=== PATIENT | female | born 2005 | race Caucasian/White ===

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

== ENCOUNTER 2024-06-02 13:18 | Inpatient (IN) | payer OTHER ==
--- NOTE | 2024-06-02 13:41 | ED ---
Nausea/Vomiting/Diarrhea HPI - General Source: patient, family, RN notes reviewed Mode of arrival: ambulatory Limitations: no limitations <Gracia Palomino - Last Filed: 06/02/24 13:39> <Maynor Stiles - Last Filed: 06/02/24 19:27> - General Chief complaint: Nausea/Vomiting/Diarrhea Stated complaint: Diabetic issue-poss DKA Time Seen by Provider: 06/02/24 13:35 - History of Present Illness Initial comments: Quick Note: This is a 19-year-old female who presents to the emergency department for nausea, vomiting, and weakness. Her mother states that it started yesterday. Feels like she is going into DKA again. Yesterday her sugars were in the 120s to 130s, but she has not yet checked it today. (Gracia Jacobsen) This is a 19-year-old female who is a type I diabetic. Patient started vomiting last night and continued vomiting this morning. Patient feels extremely weak and has a history of being in DKA. Patient states her sugars were 130 yesterday but did not take today. Patient has any fever chills. Patient denies chest pain difficulty breathing shortness of breath. Patient denies abdominal pain but continues to be nauseous. (Maynor Stiles) - Related Data Home Medications Medication Instructions Recorded Confirmed Insulin Glargine,Hum.rec.anlog 30 units SQ HS 12/23/23 06/02/24 [Lantus Solostar Pen] Insulin Lispro [humaLOG Kwikpen] 1 - 7 unit SQ ACHS 12/23/23 06/02/24 Insulin Lispro [humaLOG Kwikpen] 10 unit SQ TID-W/MEALS 12/23/23 06/02/24 Levonorgestrel/Ethin.estradiol 1 tab PO DAILY 12/23/23 06/02/24 [Lutera-28 Tablet] atenoloL [Tenormin] 50 mg PO DAILY 12/23/23 06/02/24 methIMAzole 10 mg PO TID 12/23/23 06/02/24 lisinopriL [Zestril] 2.5 mg PO DAILY 06/02/24 06/02/24 Allergies Allergy/AdvReac Type Severity Reaction Status Date / Time No Known Allergies Allergy Verified 06/02/24 16:19 Review of Systems ROS Other: All systems not noted in ROS Statement are negative. <Gracia Palomino - Last Filed: 06/02/24 13:39> ROS Other: All systems not noted in ROS Statement are negative. <Maynor Stiles - Last Filed: 06/02/24 19:27> ROS Statement: Those systems with pertinent positive or pertinent negative responses have been documented in the HPI. Past Medical History Past Medical History: Asthma, Diabetes Mellitus, Thyroid Disorder Additional Past Medical History / Comment(s): hyperthyroidism, Type 1 DM, tachycardia, grave's disease History of Any Multi-Drug Resistant Organisms: None Reported Past Surgical History: No Surgical Hx Reported Past Anesthesia/Blood Transfusion Reactions: No Reported Reaction Past Psychological History: No Psychological Hx Reported Smoking Status: Current some day smoker, Vaper Past Alcohol Use History: Occasional, Rare Past Drug Use History: None Reported Additional Drug Use History / Comment(s): Patient vapes daily - Past Family History Mother Additional Family Medical History / Comment(s): none Father Family Medical History: COPD Brother(s) Family Medical History: Diabetes Mellitus Additional Family Medical History / Comment(s): Type 1 DM <Gracia Palomino - Last Filed: 06/02/24 13:39> General Exam <Gracia Palomino - Last Filed: 06/02/24 13:39> <Maynor Stiles - Last Filed: 06/02/24 19:27> - General Exam Comments Initial Comments: Visual Physical Exam Vital signs reviewed General: In distress, lethargic Head: Normocephalic, atraumatic Eyes: PERRLA, EOMI ENT: Airway patent Chest: Nonlabored breathing Skin: No visual rash, normal skin tone Neuro: Alert and oriented 3 Musculoskeletal: No gross abnormalities (Gracia Palomino) GENERAL: Patient is well-developed and well-nourished. Patient is nontoxic and well- hydrated and is in moderate distress. ENT: Neck is soft and supple. No significant lymphadenopathy is noted. Oropharynx is clear. Dry mucous membranes. Neck has full range of motion without eliciting any pain. EYES: The sclera were anicteric and conjunctiva were pink and moist. Extraocular movements were intact and pupils were equal round and reactive to light. Eyelids were unremarkable. PULMONARY: Unlabored respirations. Good breath sounds bilaterally. No audible rales rhonchi or wheezing was noted. CARDIOVASCULAR: Is a regular rate at about 170 bpm ABDOMEN: Soft and nontender with normal bowel sounds. SKIN: Skin is clear with no lesions or rashes and otherwise unremarkable. NEUROLOGIC: Patient is alert and oriented x3. Cranial nerves II through XII are grossly intact. Motor and sensory are also intact. Normal speech, volume and content. Symmetrical smile. MUSCULOSKELETAL: Normal extremities with adequate strength and full range of motion. LYMPHATICS: No significant lymphadenopathy is noted PSYCHIATRIC: Normal psychiatric evaluation. (Maynor Stiles) Course Vital Signs 06/02/24 06/02/24 06/02/24 13:39 14:41 14:50 Temperature 97 F L Pulse Rate 172 H 181 H 174 H Respiratory 16 28 H 26 H Rate Blood Pressure 136/87 114/106 O2 Sat by Pulse 95 Oximetry 06/02/24 06/02/24 06/02/24 15:04 16:29 17:35 Temperature 99.3 F 98.5 F Pulse Rate 179 H 154 H 146 H Respiratory 26 H 20 30 H Rate Blood Pressure 144/91 123/69 O2 Sat by Pulse 96 96 Oximetry 06/02/24 06/02/24 06/02/24 18:01 18:16 18:43 Temperature Pulse Rate 152 H 135 H 141 H Respiratory 30 H 28 H 30 H Rate Blood Pressure 127/77 130/83 O2 Sat by Pulse 99 99 97 Oximetry Medical Decision Making <Gracia Palomino - Last Filed: 06/02/24 13:39> - Lab Data Result diagrams: 06/02/24 14:19 06/02/24 16:11 <Maynor Stiles - Last Filed: 06/02/24 19:27> - Medical Decision Making I performed the QuickNote portion of this chart. Signed Gracia Palomino PA-C. (Gracia Palomino) EKG is interpreted by myself EKG shows sinus tach at 170 bpm QRS is 78 QT interval is 233 QTc is 325. Patient's EKG shows no ST segment elevation or depression. Was pt. sent in by a medical professional or institution (LUCIA Ruiz, OFFICE RN, urgent care, hospital, or [facility]...) When possible be specific @ -No Did you speak to anyone other than the patient for history (EMS, parent, family, police, friend...)? What history was obtained from this source @ -No Did you review nursing and triage notes (agree or disagree)? Why? @ -I reviewed and agree with nursing and triage notes Were old charts reviewed (outside hosp., previous admission, EMS record, old EKG, old radiological studies, urgent care reports/EKG's, [facility] records)? Report findings @ -No old charts were reviewed Differential Diagnosis? @ -Vomiting, DKA, thyroid storm, viral syndrome, this is not an all-inclusive list EKG interpreted by me (3pts min.). @ -As above X-rays interpreted by me (1pt min.). @ -None done CT interpreted by me (1pt min.). @ -None done U/S interpreted by me (1pt. min.). @ -None done What testing was considered but not performed or refused? (CT, X-rays, U/S, labs)? Why? @ -None What meds were considered but not given or refused? Why? @ -None Did you discuss the management of the patient with other professionals (professionals i.e. DrSamy, PA, OFFICE RN, lab, RT, psych nurse, rn social services, automobile washer steam, teacher, revenue officer, case specialist)? Give summary @ -I spoke with Dr. Garner he agreed to admit the patient. I also spoke with Dr. Hernandez he agreed to take the patient to the ICU. Was smoking cessation discussed for >3mins.? @ -No Was critical care preformed (if so, how long)? @ -50 minutes Were there social determinants of health that impacted care today? How? (Homelessness, low income, unemployed, alcoholism, drug addiction, t ransportation, low edu. Level, literacy, decrease access to med. care, senior care, rehab)? @ -No Was there de-escalation of care discussed even if they declined (Discuss DNR or withdrawal of care, Hospice)? DNR status @ -No What co-morbidities impacted this encounter? (DM, HTN, Smoking, COPD, CAD, Cancer, CVA, ARF, Chemo, Hep., AIDS, mental health diagnosis, sleep apnea, morbid obesity)? @ -None Was patient admitted / discharged? Hospital course, mention meds given and route, prescriptions, significant lab abnormalities, going to OR and other pertinent info. @ -Patient on arrival was treated as a DKA patient was given 2 L of normal saline was started on a insulin drip and was given a bolus of insulin. After the patient was here 2 hours mother informing that the patient does have Graves' disease and in the past has had a thyroid storm. At this point in time I ordered propranolol and I gave her 3 doses of 2 mg over a couple of hours. Did bring the heart rate down from 180 down to 140. Patient was also given a dose of her methazolamide and she was feeling considerably better and she will be sent to the ICU. Undiagnosed new problem with uncertain prognosis? @ -No Drug Therapy requiring intensive monitoring for toxicity (Heparin, Nitro, Insulin, Cardizem)? @ -No Were any procedures done? @ -No Diagnosis/symptom? @ -Diabetic ketoacidosis Acute, or Chronic, or Acute on Chronic? @ -Acute Uncomplicated (without systemic symptoms) or Complicated (systemic symptoms)? @ -Comp Side effects of treatment? @ -No Exacerbation, Progression, or Severe Exacerbation? @ -No Poses a threat to life or bodily function? How? (Chest pain, [place], [place], pneumonia, PE, COPD, DKA, ARF, appy, cholecystitis, CVA, Diverticulitis, Homicidal, Suicidal, threat to staff... and all critical care pts) @ -Yes this can lead to severe dehydration and endorgan dysfunction Diagnosis/symptom? @ -Thyroid storm Acute, or Chronic, or Acute on Chronic? @ -Acute Uncomplicated (without systemic symptoms) or Complicated (systemic symptoms)? @ -Complicated Side effects of treatment? @ -None Exacerbation, Progression, or Severe Exacerbation] @ -No Poses a threat to life or bodily function? @ -Yes this can lead to arrhythmias, hyperpyrexia, and electrolyte abnormalities. (Maynor Stiles) - Lab Data Lab Results 06/02/24 06/02/24 06/02/24 Range/Units 13:42 14:19 14:19 WBC 20.1 H (4.0-11.0) k/uL RBC 5.34 (3.80-5.40) m/uL Hgb 15.4 (11.4-16.0) gm/dL Hct 51.9 H (34.0-46.0) % MCV 97.2 (80.0-100.0) fL MCH 28.8 (25.0-35.0) pg MCHC 29.7 L (31.0-37.0) g/dL RDW 13.3 (11.5-15.5) % Plt Count 386 (150-450) k/uL MPV 7.6 Neutrophils % 78 % Lymphocytes % 18 % Monocytes % 2 % Eosinophils % 0 % Basophils % 0 % Neutrophils # 15.7 H (1.3-7.7) k/uL Lymphocytes # 3.6 (1.0-4.8) k/uL Monocytes # 0.5 (0-1.0) k/uL Eosinophils # 0.0 (0-0.7) k/uL Basophils # 0.1 (0-0.2) k/uL Hypochromasia Marked VBG pH (7.31-7.41) VBG pCO2 (37-51) mmHg VBG HCO3 (24-28) mmol/L Sodium 133 L (137-145) mmol/L Potassium 5.7 H (3.5-5.1) mmol/L Chloride 97 L (98-107) mmol/L Carbon Dioxide <5 L* (22-30) mmol/L Anion Gap mmol/L BUN 11 (7-17) mg/dL Creatinine 0.63 (0.52-1.04) mg/dL Est GFR (CKD-EPI)AfAm >90 (>60 ml/min/1.73 sqM) Est GFR (CKD-EPI)NonAf >90 (>60 ml/min/1.73 sqM) Glucose 601 H* (74-99) mg/dL POC Glucose (mg/dL) 490 H (70-110) mg/dL POC Glu Facilities Maintenance Assistant ID Stefany Packer Lactic Ac Sepsis Rflx Plasma Lactic Acid Artis (0.7-2.0) mmol/L Calcium 9.9 (8.4-10.2) mg/dL Phosphorus 7.5 H (2.5-4.5) mg/dL Magnesium 1.6 (1.6-2.3) mg/dL Total Bilirubin 0.7 (0.2-1.3) mg/dL AST 41 H (14-36) U/L ALT 46 H (4-34) U/L Alkaline Phosphatase 153 H (38-126) U/L Total Protein 7.8 (6.3-8.2) g/dL Albumin 4.9 (3.5-5.0) g/dL TSH <0.015 L (0.465-4.680) mIU/L Free T4 6.72 H (0.78-2.19) ng/dL Urine Color Urine Appearance (Clear) Urine pH (5.0-8.0) Ur Specific Tyler (1.001-1.035) Urine Protein (Negative) Urine Glucose (UA) (Negative) Urine Ketones (Negative) Urine Blood (Negative) Urine Nitrite (Negative) Urine Bilirubin (Negative) Urine Urobilinogen (<2.0) mg/dL Ur Leukocyte Esterase (Negative) Urine RBC (0-5) /hpf Urine WBC (0-5) /hpf Ur Squamous Epith Cells (0-4) /hpf Amorphous Sediment (None) /hpf Urine Bacteria (None) /hpf Urine Mucus (None) /hpf Urine HCG, Qual (Not Detectd) Acetone, Qual Positive (Negative) 06/02/24 06/02/24 06/02/24 Range/Units 14:19 14:19 14:25 WBC (4.0-11.0) k/uL RBC (3.80-5.40) m/uL Hgb (11.4-16.0) gm/dL Hct (34.0-46.0) % MCV (80.0-100.0) fL MCH (25.0-35.0) pg MCHC (31.0-37.0) g/dL RDW (11.5-15.5) % Plt Count (150-450) k/uL MPV Neutrophils % % Lymphocytes % % Monocytes % % Eosinophils % % Basophils % % Neutrophils # (1.3-7.7) k/uL Lymphocytes # (1.0-4.8) k/uL Monocytes # (0-1.0) k/uL Eosinophils # (0-0.7) k/uL Basophils # (0-0.2) k/uL Hypochromasia VBG pH 7.03 L* (7.31-7.41) VBG pCO2 19 L (37-51) mmHg VBG HCO3 5 L* (24-28) mmol/L Sodium (137-145) mmol/L Potassium (3.5-5.1) mmol/L Chloride (98-107) mmol/L Carbon Dioxide (22-30) mmol/L Anion Gap mmol/L BUN (7-17) mg/dL Creatinine (0.52-1.04) mg/dL Est GFR (CKD-EPI)AfAm (>60 ml/min/1.73 sqM) Est GFR (CKD-EPI)NonAf (>60 ml/min/1.73 sqM) Glucose (74-99) mg/dL POC Glucose (mg/dL) 498 H (70-110) mg/dL POC Glu Facilities Maintenance Assistant ID October Lactic Ac Sepsis Rflx Plasma Lactic Acid Artis 3.8 H* (0.7-2.0) mmol/L Calcium (8.4-10.2) mg/dL Phosphorus (2.5-4.5) mg/dL Magnesium (1.6-2.3) mg/dL Total Bilirubin (0.2-1.3) mg/dL AST (14-36) U/L ALT (4-34) U/L Alkaline Phosphatase (38-126) U/L Total Protein (6.3-8.2) g/dL Albumin (3.5-5.0) g/dL TSH (0.465-4.680) mIU/L Free T4 (0.78-2.19) ng/dL Urine Color Urine Appearance (Clear) Urine pH (5.0-8.0) Ur Specific Tyler (1.001-1.035) Urine Protein (Negative) Urine Glucose (UA) (Negative) Urine Ketones (Negative) Urine Blood (Negative) Urine Nitrite (Negative) Urine Bilirubin (Negative) Urine Urobilinogen (<2.0) mg/dL Ur Leukocyte Esterase (Negative) Urine RBC (0-5) /hpf Urine WBC (0-5) /hpf Ur Squamous Epith Cells (0-4) /hpf Amorphous Sediment (None) /hpf Urine Bacteria (None) /hpf Urine Mucus (None) /hpf Urine HCG, Qual (Not Detectd) Acetone, Qual (Negative) 06/02/24 06/02/24 06/02/24 Range/Units 15:10 15:20 15:20 WBC (4.0-11.0) k/uL RBC (3.80-5.40) m/uL Hgb (11.4-16.0) gm/dL Hct (34.0-46.0) % MCV (80.0-100.0) fL MCH (25.0-35.0) pg MCHC (31.0-37.0) g/dL RDW (11.5-15.5) % Plt Count (150-450) k/uL MPV Neutrophils % % Lymphocytes % % Monocytes % % Eosinophils % % Basophils % % Neutrophils # (1.3-7.7) k/uL Lymphocytes # (1.0-4.8) k/uL Monocytes # (0-1.0) k/uL Eosinophils # (0-0.7) k/uL Basophils # (0-0.2) k/uL Hypochromasia VBG pH (7.31-7.41) VBG pCO2 (37-51) mmHg VBG HCO3 (24-28) mmol/L Sodium (137-145) mmol/L Potassium (3.5-5.1) mmol/L Chloride (98-107) mmol/L Carbon Dioxide (22-30) mmol/L Anion Gap mmol/L BUN (7-17) mg/dL Creatinine (0.52-1.04) mg/dL Est GFR (CKD-EPI)AfAm (>60 ml/min/1.73 sqM) Est GFR (CKD-EPI)NonAf (>60 ml/min/1.73 sqM) Glucose (74-99) mg/dL POC Glucose (mg/dL) (70-110) mg/dL POC Glu Facilities Maintenance Assistant ID Lactic Ac Sepsis Rflx Y Plasma Lactic Acid Artis (0.7-2.0) mmol/L Calcium (8.4-10.2) mg/dL Phosphorus (2.5-4.5) mg/dL Magnesium (1.6-2.3) mg/dL Total Bilirubin (0.2-1.3) mg/dL AST (14-36) U/L ALT (4-34) U/L Alkaline Phosphatase (38-126) U/L Total Protein (6.3-8.2) g/dL Albumin (3.5-5.0) g/dL TSH (0.465-4.680) mIU/L Free T4 (0.78-2.19) ng/dL Urine Color Colorless Urine Appearance Cloudy H (Clear) Urine pH 5.0 (5.0-8.0) Ur Specific Tyler 1.018 (1.001-1.035) Urine Protein Trace H (Negative) Urine Glucose (UA) 4+ H (Negative) Urine Ketones 4+ H (Negative) Urine Blood Small H (Negative) Urine Nitrite Negative (Negative) Urine Bilirubin Negative (Negative) Urine Urobilinogen <2.0 (<2.0) mg/dL Ur Leukocyte Esterase Large H (Negative) Urine RBC 30 H (0-5) /hpf Urine WBC 46 H (0-5) /hpf Ur Squamous Epith Cells 20 H (0-4) /hpf Amorphous Sediment Occasional H (None) /hpf Urine Bacteria Occasional H (None) /hpf Urine Mucus Rare H (None) /hpf Urine HCG, Qual Not Detected (Not Detectd) Acetone, Qual (Negative) 06/02/24 06/02/24 06/02/24 Range/Units 15:27 16:11 16:11 WBC (4.0-11.0) k/uL RBC (3.80-5.40) m/uL Hgb (11.4-16.0) gm/dL Hct (34.0-46.0) % MCV (80.0-100.0) fL MCH (25.0-35.0) pg MCHC (31.0-37.0) g/dL RDW (11.5-15.5) % Plt Count (150-450) k/uL MPV Neutrophils % % Lymphocytes % % Monocytes % % Eosinophils % % Basophils % % Neutrophils # (1.3-7.7) k/uL Lymphocytes # (1.0-4.8) k/uL Monocytes # (0-1.0) k/uL Eosinophils # (0-0.7) k/uL Basophils # (0-0.2) k/uL Hypochromasia VBG pH (7.31-7.41) VBG pCO2 (37-51) mmHg VBG HCO3 (24-28) mmol/L Sodium 140 (137-145) mmol/L Potassium 4.4 (3.5-5.1) mmol/L Chloride 110 H (98-107) mmol/L Carbon Dioxide <5 L* (22-30) mmol/L Anion Gap mmol/L BUN 11 (7-17) mg/dL Creatinine 0.57 (0.52-1.04) mg/dL Est GFR (CKD-EPI)AfAm >90 (>60 ml/min/1.73 sqM) Est GFR (CKD-EPI)NonAf >90 (>60 ml/min/1.73 sqM) Glucose 328 H (74-99) mg/dL POC Glucose (mg/dL) 383 H (70-110) mg/dL POC Glu Facilities Maintenance Assistant ID Krish Stuart Lactic Ac Sepsis Rflx Plasma Lactic Acid Artis (0.7-2.0) mmol/L Calcium (8.4-10.2) mg/dL Phosphorus 5.7 H (2.5-4.5) mg/dL Magnesium (1.6-2.3) mg/dL Total Bilirubin (0.2-1.3) mg/dL AST (14-36) U/L ALT (4-34) U/L Alkaline Phosphatase (38-126) U/L Total Protein (6.3-8.2) g/dL Albumin (3.5-5.0) g/dL TSH (0.465-4.680) mIU/L Free T4 (0.78-2.19) ng/dL Urine Color Urine Appearance (Clear) Urine pH (5.0-8.0) Ur Specific Tyler (1.001-1.035) Urine Protein (Negative) Urine Glucose (UA) (Negative) Urine Ketones (Negative) Urine Blood (Negative) Urine Nitrite (Negative) Urine Bilirubin (Negative) Urine Urobilinogen (<2.0) mg/dL Ur Leukocyte Esterase (Negative) Urine RBC (0-5) /hpf Urine WBC (0-5) /hpf Ur Squamous Epith Cells (0-4) /hpf Amorphous Sediment (None) /hpf Urine Bacteria (None) /hpf Urine Mucus (None) /hpf Urine HCG, Qual (Not Detectd) Acetone, Qual (Negative) 06/02/24 06/02/24 06/02/24 Range/Units 16:18 17:34 17:45 WBC (4.0-11.0) k/uL RBC (3.80-5.40) m/uL Hgb (11.4-16.0) gm/dL Hct (34.0-46.0) % MCV (80.0-100.0) fL MCH (25.0-35.0) pg MCHC (31.0-37.0) g/dL RDW (11.5-15.5) % Plt Count (150-450) k/uL MPV Neutrophils % % Lymphocytes % % Monocytes % % Eosinophils % % Basophils % % Neutrophils # (1.3-7.7) k/uL Lymphocytes # (1.0-4.8) k/uL Monocytes # (0-1.0) k/uL Eosinophils # (0-0.7) k/uL Basophils # (0-0.2) k/uL Hypochromasia VBG pH (7.31-7.41) VBG pCO2 (37-51) mmHg VBG HCO3 (24-28) mmol/L Sodium (137-145) mmol/L Potassium (3.5-5.1) mmol/L Chloride (98-107) mmol/L Carbon Dioxide (22-30) mmol/L Anion Gap mmol/L BUN (7-17) mg/dL Creatinine (0.52-1.04) mg/dL Est GFR (CKD-EPI)AfAm (>60 ml/min/1.73 sqM) Est GFR (CKD-EPI)NonAf (>60 ml/min/1.73 sqM) Glucose (74-99) mg/dL POC Glucose (mg/dL) 268 H 190 H (70-110) mg/dL POC Glu Facilities Maintenance Assistant ID Krish Guerra Lactic Ac Sepsis Rflx Plasma Lactic Acid Artis 1.1 (0.7-2.0) mmol/L Calcium (8.4-10.2) mg/dL Phosphorus (2.5-4.5) mg/dL Magnesium (1.6-2.3) mg/dL Total Bilirubin (0.2-1.3) mg/dL AST (14-36) U/L ALT (4-34) U/L Alkaline Phosphatase (38-126) U/L Total Protein (6.3-8.2) g/dL Albumin (3.5-5.0) g/dL TSH (0.465-4.680) mIU/L Free T4 (0.78-2.19) ng/dL Urine Color Urine Appearance (Clear) Urine pH (5.0-8.0) Ur Specific Tyler (1.001-1.035) Urine Protein (Negative) Urine Glucose (UA) (Negative) Urine Ketones (Negative) Urine Blood (Negative) Urine Nitrite (Negative) Urine Bilirubin (Negative) Urine Urobilinogen (<2.0) mg/dL Ur Leukocyte Esterase (Negative) Urine RBC (0-5) /hpf Urine WBC (0-5) /hpf Ur Squamous Epith Cells (0-4) /hpf Amorphous Sediment (None) /hpf Urine Bacteria (None) /hpf Urine Mucus (None) /hpf Urine HCG, Qual (Not Detectd) Acetone, Qual (Negative) 06/02/24 06/02/24 Range/Units 17:45 18:39 WBC (4.0-11.0) k/uL RBC (3.80-5.40) m/uL Hgb (11.4-16.0) gm/dL Hct (34.0-46.0) % MCV (80.0-100.0) fL MCH (25.0-35.0) pg MCHC (31.0-37.0) g/dL RDW (11.5-15.5) % Plt Count (150-450) k/uL MPV Neutrophils % % Lymphocytes % % Monocytes % % Eosinophils % % Basophils % % Neutrophils # (1.3-7.7) k/uL Lymphocytes # (1.0-4.8) k/uL Monocytes # (0-1.0) k/uL Eosinophils # (0-0.7) k/uL Basophils # (0-0.2) k/uL Hypochromasia VBG pH 7.07 L* (7.31-7.41) VBG pCO2 16 L* (37-51) mmHg VBG HCO3 5 L* (24-28) mmol/L Sodium (137-145) mmol/L Potassium (3.5-5.1) mmol/L Chloride (98-107) mmol/L Carbon Dioxide (22-30) mmol/L Anion Gap mmol/L BUN (7-17) mg/dL Creatinine (0.52-1.04) mg/dL Est GFR (CKD-EPI)AfAm (>60 ml/min/1.73 sqM) Est GFR (CKD-EPI)NonAf (>60 ml/min/1.73 sqM) Glucose (74-99) mg/dL POC Glucose (mg/dL) 133 H (70-110) mg/dL POC Glu Facilities Maintenance Assistant ID Abdulaziz Naqvi Lactic Ac Sepsis Rflx Plasma Lactic Acid Artis (0.7-2.0) mmol/L Calcium (8.4-10.2) mg/dL Phosphorus (2.5-4.5) mg/dL Magnesium (1.6-2.3) mg/dL Total Bilirubin (0.2-1.3) mg/dL AST (14-36) U/L ALT (4-34) U/L Alkaline Phosphatase (38-126) U/L Total Protein (6.3-8.2) g/dL Albumin (3.5-5.0) g/dL TSH (0.465-4.680) mIU/L Free T4 (0.78-2.19) ng/dL Urine Color Urine Appearance (Clear) Urine pH (5.0-8.0) Ur Specific Tyler (1.001-1.035) Urine Protein (Negative) Urine Glucose (UA) (Negative) Urine Ketones (Negative) Urine Blood (Negative) Urine Nitrite (Negative) Urine Bilirubin (Negative) Urine Urobilinogen (<2.0) mg/dL Ur Leukocyte Esterase (Negative) Urine RBC (0-5) /hpf Urine WBC (0-5) /hpf Ur Squamous Epith Cells (0-4) /hpf Amorphous Sediment (None) /hpf Urine Bacteria (None) /hpf Urine Mucus (None) /hpf Urine HCG, Qual (Not Detectd) Acetone, Qual (Negative) Disposition <Gracia Palomino - Last Filed: 06/02/24 13:39> Time of Disposition: 19:27 <Maynor Stiles - Last Filed: 06/02/24 19:27> Clinical Impression: DKA (diabetic ketoacidosis), Thyroid storm Disposition: ADMITTED IP TO THIS HOSP Referrals: Stanley Garner MD [Primary Care Provider] - 1-2 days
[2024-06-02 13:43] LABS: Glucose,Whole Blood 490 mg/dL (70-110)
[2024-06-02] MEDS ORDERED: DEXTROSE 50% SYRINGE 50 ML IVP PRN ×2 (14:07)
[2024-06-02] MEDS ORDERED: Magnesium Replacement Protocol 1 EACH MISC MISCELLANE PRN (14:07)
[2024-06-02] MEDS ORDERED: Potassium Replacement Protocol 1 EACH MISC MISCELLANE PRN (14:07)
[2024-06-02] MEDS: INSULIN REGULAR BOLUS (FROM DRIP BAG) IV ONE (14:27)
[2024-06-02] MEDS: INSULIN REGULAR 100 UNIT in SODIUM CHLORIDE 0.9% 100 ML IV SCH (14:29)
[2024-06-02] MEDS: SODIUM CHLORIDE 0.9% 2,000 ML IV STA (14:31)
[2024-06-02 14:33] LABS: Glucose,Whole Blood 498 mg/dL (70-110)
[2024-06-02 14:42] LABS: Basophils # (A) 0.1 k/uL (0-0.2); Basophils % (A) 0 %; Eosinophils % (A) 0 %; HCT 51.9 % (34.0-46.0); HGB 15.4 gm/dL (11.4-16.0); Hypochromasia Marked; Lymphocytes # (A) 3.6 k/uL (1.0-4.8); Lymphocytes % (A) 18 %; MCH 28.8 pg (25.0-35.0); MCHC 29.7 g/dL (31.0-37.0); MCV 97.2 fL (80.0-100.0); Mean Platelet Volume 7.6; Monocytes # (A) 0.5 k/uL (0-1.0); Monocytes % (A) 2 %; Neutrophils # (A) 15.7 k/uL (1.3-7.7); Neutrophils % (A) 78 %; Platelet Count 386 k/uL (150-450); RBC 5.34 m/uL (3.80-5.40); RDW 13.3 % (11.5-15.5); WBC 20.1 k/uL (4.0-11.0)
[2024-06-02] MEDS: ONDANSETRON 4 MG/2 ML VIAL IVP STA (14:46)
[2024-06-02 14:58] LABS: ALT 46 U/L (4-34); AST 41 U/L (14-36); African American GFR (CKD) >90 (>60 ml/min/1.73 sqM); Albumin 4.9 g/dL (3.5-5.0); Alkaline Phosphatase 153 U/L (38-126); Blood Urea Nitrogen 11 mg/dL (7-17); Calcium 9.9 mg/dL (8.4-10.2); Chloride 97 mmol/L (98-107); Magnesium 1.6 mg/dL (1.6-2.3); Non-African American GFR(CKD) >90 (>60 ml/min/1.73 sqM); Phosphorus 7.5 mg/dL (2.5-4.5); Potassium 5.7 mmol/L (3.5-5.1); Sodium 133 mmol/L (137-145); Total Bilirubin 0.7 mg/dL (0.2-1.3); Total Protein 7.8 g/dL (6.3-8.2)
[2024-06-02 15:10] LABS: Carbon Dioxide <5 mmol/L (22-30); VBG PH 7.03 (7.31-7.41)
[2024-06-02 15:12] LABS: Glucose 601 mg/dL (74-99)
[2024-06-02 15:28] LABS: Glucose,Whole Blood 383 mg/dL (70-110)
[2024-06-02] MEDS ORDERED: HYDROmorphone 0.5 MG/0.5 ML SYRINGE IVP STA (15:38)
[2024-06-02 15:42] LABS: Amorphous Sediment,Urine Occasional /hpf; Appearance,Urine Cloudy (Clear); Bacteria,Urine Occasional /hpf; Bilirubin,Urine Negative (Negative); Blood,Urine Small (Negative); Color,Urine Colorless; Glucose,Urine (UA) 4+ (Negative); Leukocyte Esterase,Urine Large (Negative); Mucus,Urine Rare /hpf; Nitrite,Urine Negative (Negative); Protein,Urine Trace (Negative); RBC,Urine 30 /hpf (0-5); Specific Gravity,Urine 1.018 (1.001-1.035); Squamous Epithelial Cell,Urine 20 /hpf (0-4); Urobilinogen,Urine <2.0 mg/dL (<2.0); WBC,Urine 46 /hpf (0-5)
[2024-06-02 15:45] LABS: Ketones,Urine 4+ (Negative)
[2024-06-02] MEDS: LORazepam 2 MG/ML INJ IV STA (15:52)
[2024-06-02] MEDS: PROPRANOLOL 1 MG/ML 1 ML VIAL IV SCH (15:56)
[2024-06-02 15:59] LABS: T4, Free (Free Thyroxine) 6.72 ng/dL (0.78-2.19)
[2024-06-02 16:20] LABS: Glucose,Whole Blood 268 mg/dL (70-110)
[2024-06-02 16:46] LABS: Phosphorus 5.7 mg/dL (2.5-4.5)
[2024-06-02 16:48] LABS: African American GFR (CKD) >90 (>60 ml/min/1.73 sqM); Blood Urea Nitrogen 11 mg/dL (7-17); Chloride 110 mmol/L (98-107); Glucose 328 mg/dL (74-99); Non-African American GFR(CKD) >90 (>60 ml/min/1.73 sqM); Potassium 4.4 mmol/L (3.5-5.1); Sodium 140 mmol/L (137-145)
[2024-06-02] MEDS: DEXTROSE 5%-0.45% NACL 1,000 ML IV ONE (16:53)
[2024-06-02 17:03] LABS: Carbon Dioxide <5 mmol/L (22-30)
[2024-06-02] MEDS: SODIUM CHLORIDE 0.9% 1,000 ML IV SCH (17:10)
[2024-06-02] MEDS: PROPRANOLOL 1 MG/ML 1 ML VIAL IV STA ×3 (17:14→21:41)
[2024-06-02 17:41] LABS: Glucose,Whole Blood 190 mg/dL (70-110)
[2024-06-02 18:12] LABS: VBG PH 7.07 (7.31-7.41)
[2024-06-02 18:50] LABS: Glucose,Whole Blood 133 mg/dL (70-110)
[2024-06-02 19:32] LABS: Glucose,Whole Blood 135 mg/dL (70-110)
[2024-06-02] MEDS: methIMAzole 5 MG TAB PO ONE (19:46)
[2024-06-02 20:26] LABS: African American GFR (CKD) >90 (>60 ml/min/1.73 sqM); Anion Gap 15 mmol/L; Blood Urea Nitrogen 8 mg/dL (7-17); Chloride 109 mmol/L (98-107); Glucose 156 mg/dL (74-99); Non-African American GFR(CKD) >90 (>60 ml/min/1.73 sqM); Potassium 4.4 mmol/L (3.5-5.1); Sodium 132 mmol/L (137-145)
[2024-06-02 20:45] LABS: Carbon Dioxide 8 mmol/L (22-30)
[2024-06-02 20:49] LABS: Glucose,Whole Blood 180 mg/dL (70-110)
[2024-06-02 21:41] LABS: VBG PH 7.3 (7.31-7.41)
[2024-06-02 21:45] LABS: Glucose,Whole Blood 202 mg/dL (70-110)
[2024-06-02] MEDS ORDERED: METHIMAZOLE 10 MG PO SCH (22:00)
[2024-06-02 23:23] LABS: Glucose,Whole Blood 203 mg/dL (70-110)
[2024-06-03 00:38] LABS: Glucose,Whole Blood 177 mg/dL (70-110)
[2024-06-03] MEDS: D5-0.45% NACL WITH KCL 20MEQ/L 1,000 ML IV SCH (00:49)
[2024-06-03 01:33] LABS: Glucose,Whole Blood 191 mg/dL (70-110)
[2024-06-03 01:48] LABS: African American GFR (CKD) >90 (>60 ml/min/1.73 sqM); Anion Gap 14 mmol/L; Blood Urea Nitrogen 6 mg/dL (7-17); Carbon Dioxide 10 mmol/L (22-30); Chloride 109 mmol/L (98-107); Glucose 206 mg/dL (74-99); Non-African American GFR(CKD) >90 (>60 ml/min/1.73 sqM); Potassium 3.9 mmol/L (3.5-5.1); Sodium 133 mmol/L (137-145)
[2024-06-03 02:30] LABS: Glucose,Whole Blood 212 mg/dL (70-110)
[2024-06-03] MEDS: POTASSIUM CHLORIDE 10 MEQ in WATER FOR INJECTION 1 100ML.BAG IVPB SCH ×2 (02:51→07:02)
[2024-06-03 03:16] LABS: Glucose,Whole Blood 211 mg/dL (70-110)
[2024-06-03 04:11] LABS: Glucose,Whole Blood 210 mg/dL (70-110)
[2024-06-03 05:10] LABS: Glucose,Whole Blood 206 mg/dL (70-110)
[2024-06-03 05:19] LABS: African American GFR (CKD) >90 (>60 ml/min/1.73 sqM); Anion Gap 11 mmol/L; Blood Urea Nitrogen 4 mg/dL (7-17); Carbon Dioxide 11 mmol/L (22-30); Chloride 109 mmol/L (98-107); Glucose 226 mg/dL (74-99); Non-African American GFR(CKD) >90 (>60 ml/min/1.73 sqM); Phosphorus 2.8 mg/dL (2.5-4.5); Potassium 3.7 mmol/L (3.5-5.1); Sodium 131 mmol/L (137-145)
[2024-06-03 06:08] LABS: Glucose,Whole Blood 215 mg/dL (70-110)
[2024-06-03] MEDS ORDERED: Potassium Replacement Protocol 1 EACH MISC MISCELLANE PRN (06:43)
[2024-06-03 07:09] LABS: Glucose,Whole Blood 217 mg/dL (70-110)
[2024-06-03 07:59] LABS: Glucose,Whole Blood 221 mg/dL (70-110)
[2024-06-03] MEDS: MAGNESIUM SULFATE-D5W PMX 1 GM in DEXTROSE/WATER 1 100ML.BAG IVPB SCH (08:22)
[2024-06-03] MEDS: methIMAzole 5 MG TAB PO SCH ×2 (08:23→21:28)
[2024-06-03] MEDS: atenoloL 50 MG TAB PO SCH (08:23)
[2024-06-03] MEDS ORDERED: methIMAzole 5 MG TAB PO SCH (09:00)
[2024-06-03 09:04] LABS: Glucose,Whole Blood 219 mg/dL (70-110)
[2024-06-03 09:24] LABS: HCT 41.5 % (34.0-46.0); Hypochromasia Moderate; MCHC 31.4 g/dL (31.0-37.0); MCV 92.3 fL (80.0-100.0); RDW 13.7 % (11.5-15.5)
--- NOTE | 2024-06-03 09:26 | P.CNPUL ---
History of Present Illness Consult date: 06/03/24 History of present illness: Patient is a 19-year-old female with past medical history significant for type 1 diabetes and hyperthyroidism who presented to the emergency department with 1 day of nausea, vomiting, and weakness. She has experienced DKA before, most recently in July 2023. She states that she has been compliant with her medications and blood sugar checks. Dr. Bateman manages her diabetes and hyperthyroidism. Initial ED workup: VBG pH 7.03, pCO2 19, and HCO3 5. EKG showed supraventricular tachycardia. Blood pressure was 136/87, pulses were [id number]. Labs showed WBCs 20.1, hemoglobin 15.4, hematocrit 51.9, platelets 386, sodium 133, potassium 5.7, chloride 97, CO2 <5, BUN 11, creatinine 0.63, glucose 601, lactic acid 3.8, AST 41, ALT 46, alkaline phosphatase 153, TSH <0.015, free T4 6.72, free T3 13. Urinalysis positive for acetone, ketones, and glucose. She was subsequently started on DKA protocol with IV insulin. She states that her normal resting heart rate is in the 120s-130s. 06/03/2024. She is currently on insulin at 2.06 mL /h, D50.45% NaCl at 150 mL /h, potassium chloride 10 mEq at 100 mL/h per protocol. She is on room air saturating at 98%. Blood pressure 123/72, pulse 134. She states that she is feeling better today. Review of Systems Constitutional: Denies chills, Denies fever Cardiovascular: Denies chest pain, Denies shortness of breath Respiratory: Denies cough, Denies pain Gastrointestinal: Denies abdominal pain, Denies diarrhea, Denies nausea, Denies vomiting Genitourinary: Denies dysuria, Denies hematuria Musculoskeletal: Denies myalgias Integumentary: Denies pruritus, Denies rash Neurological: Denies numbness, Denies syncope, Denies weakness Past Medical History Past Medical History: Asthma, Diabetes Mellitus, Thyroid Disorder Additional Past Medical History / Comment(s): hyperthyroidism, Type 1 DM, tachycardia, grave's disease History of Any Multi-Drug Resistant Organisms: None Reported Past Surgical History: No Surgical Hx Reported Past Anesthesia/Blood Transfusion Reactions: No Reported Reaction Past Psychological History: ADD/ADHD, Anxiety, Depression Smoking Status: Vaper Past Alcohol Use History: Occasional, Rare Past Drug Use History: None Reported Additional Drug Use History / Comment(s): Patient vapes daily - Past Family History Mother Additional Family Medical History / Comment(s): none Father Family Medical History: COPD Brother(s) Family Medical History: Diabetes Mellitus Additional Family Medical History / Comment(s): Type 1 DM Medications and Allergies Home Medications Medication Instructions Recorded Confirmed Type Insulin Glargine,Hum.rec.anlog 30 units SQ HS 12/23/23 06/02/24 History [Lantus Solostar Pen] Insulin Lispro [humaLOG Kwikpen] 1 - 7 unit SQ ACHS 12/23/23 06/02/24 History Insulin Lispro [humaLOG Kwikpen] 10 unit SQ TID-W/MEALS 12/23/23 06/02/24 History Levonorgestrel/Ethin.estradiol 1 tab PO DAILY 12/23/23 06/02/24 History [Lutera-28 Tablet] atenoloL [Tenormin] 50 mg PO DAILY 12/23/23 06/02/24 History methIMAzole 10 mg PO TID 12/23/23 06/02/24 History lisinopriL [Zestril] 2.5 mg PO DAILY 06/02/24 06/02/24 History Allergies Allergy/AdvReac Type Severity Reaction Status Date / Time No Known Allergies Allergy Verified 06/02/24 16:19 Physical Exam Vitals: Vital Signs Temp Pulse Resp BP Pulse Ox 06/03/24 06:00 130 H 30 H 116/78 98 06/03/24 05:00 98.3 F 130 H 30 H 113/77 98 06/03/24 04:00 98.2 F 137 H 18 106/74 98 06/03/24 03:00 98.4 F 137 H 23 112/76 98 06/03/24 02:00 98.6 F 137 H 18 126/89 97 06/03/24 01:00 137 H 22 117/70 98 06/03/24 00:30 129 H 25 H 107/60 98 06/03/24 00:00 98.3 F 131 H 18 128/86 98 06/02/24 23:44 134 H 18 139/77 97 06/02/24 22:00 135 H 18 109/48 99 06/02/24 21:00 138 H 129/79 99 06/02/24 20:23 98.3 F 06/02/24 19:48 152 H 20 99 06/02/24 18:43 141 H 30 H 130/83 97 06/02/24 18:16 135 H 28 H 99 06/02/24 18:01 152 H 30 H 127/77 99 06/02/24 17:35 98.5 F 146 H 30 H 123/69 96 06/02/24 16:29 154 H 20 144/91 96 06/02/24 15:04 99.3 F 179 H 26 H 06/02/24 14:50 174 H 26 H 114/106 06/02/24 14:41 181 H 28 H 06/02/24 13:39 97 F L 172 H 16 136/87 95 Intake and Output 06/02/24 06/03/24 06/03/24 22:59 06:59 14:59 Intake Total 38.138 1050 23.713 Output Total 1400 Balance 38.138 -350 23.713 Intake: IV 1050 D5-0.45% NaCl with KCl 1050 20Meq/l 1,000 ml @ 150 mls/hr IV .Q6H40M [facility] Rx# :[id number] Intake, IV Titration 38.138 23.713 Amount Insulin Regular 100 unit 38.138 23.713 In Sodium Chloride 0.9% 100 ml @ 0.1 UNITS/KG/HR 8.246 mls/hr IV .[id number] [facility] Rx#:[id number] Output: Urine 1400 Other: Weight 90.1 kg 90.1 kg Vital signs are stable. General: No acute distress. AOx4. HEENT: Head exam is unremarkable. EOMI bilaterally. ACs patent. Nares patent. Lungs: Bilateral breath sounds present; no rhonchi, wheezes, or rales. Heart: Regular rhythm. Tachycardic. S1-S2 present. No murmur/rub/gallops. Abdomen: Soft, nontender, nondistended. Bowel sounds present. Extremities: No edema present. Symmetric movement. Psych: Normal affect and mood. Cooperative. Results - Laboratory Findings CBC and BMP: 06/02/24 14:19 06/03/24 04:57 Abnormal lab findings: Abnormal Labs 06/02/24 06/02/24 06/02/24 13:42 14:19 14:19 WBC 20.1 H Hct 51.9 H MCHC 29.7 L Neutrophils # 15.7 H VBG pH VBG pCO2 VBG HCO3 Sodium 133 L Potassium 5.7 H Chloride 97 L Carbon Dioxide <5 L* BUN Creatinine Glucose 601 H* POC Glucose (mg/dL) 490 H Plasma Lactic Acid Artis Calcium Phosphorus 7.5 H Magnesium AST 41 H ALT 46 H Alkaline Phosphatase 153 H TSH <0.015 L Free T4 6.72 H Free T3 pg/mL Urine Appearance Urine Protein Urine Glucose (UA) Urine Ketones Urine Blood Ur Leukocyte Esterase Urine RBC Urine WBC Ur Squamous Epith Cells Amorphous Sediment Urine Bacteria Urine Mucus 06/02/24 06/02/24 06/02/24 14:19 14:19 14:25 WBC Hct MCHC Neutrophils # VBG pH 7.03 L* VBG pCO2 19 L VBG HCO3 5 L* Sodium Potassium Chloride Carbon Dioxide BUN Creatinine Glucose POC Glucose (mg/dL) 498 H Plasma Lactic Acid Artis 3.8 H* Calcium Phosphorus Magnesium AST ALT Alkaline Phosphatase TSH Free T4 Free T3 pg/mL Urine Appearance Urine Protein Urine Glucose (UA) Urine Ketones Urine Blood Ur Leukocyte Esterase Urine RBC Urine WBC Ur Squamous Epith Cells Amorphous Sediment Urine Bacteria Urine Mucus 06/02/24 06/02/24 06/02/24 15:20 15:27 16:11 WBC Hct MCHC Neutrophils # VBG pH VBG pCO2 VBG HCO3 Sodium Potassium Chloride Carbon Dioxide BUN Creatinine Glucose POC Glucose (mg/dL) 383 H Plasma Lactic Acid Artis Calcium Phosphorus 5.7 H Magnesium AST ALT Alkaline Phosphatase TSH Free T4 Free T3 pg/mL 13.00 H Urine Appearance Cloudy H Urine Protein Trace H Urine Glucose (UA) 4+ H Urine Ketones 4+ H Urine Blood Small H Ur Leukocyte Esterase Large H Urine RBC 30 H Urine WBC 46 H Ur Squamous Epith Cells 20 H Amorphous Sediment Occasional H Urine Bacteria Occasional H Urine Mucus Rare H 06/02/24 06/02/24 06/02/24 16:11 16:18 17:34 WBC Hct MCHC Neutrophils # VBG pH VBG pCO2 VBG HCO3 Sodium Potassium Chloride 110 H Carbon Dioxide <5 L* BUN Creatinine Glucose 328 H POC Glucose (mg/dL) 268 H 190 H Plasma Lactic Acid Artis Calcium Phosphorus Magnesium AST ALT Alkaline Phosphatase TSH Free T4 Free T3 pg/mL Urine Appearance Urine Protein Urine Glucose (UA) Urine Ketones Urine Blood Ur Leukocyte Esterase Urine RBC Urine WBC Ur Squamous Epith Cells Amorphous Sediment Urine Bacteria Urine Mucus 06/02/24 06/02/24 06/02/24 17:45 18:39 19:29 WBC Hct MCHC Neutrophils # VBG pH 7.07 L* VBG pCO2 16 L* VBG HCO3 5 L* Sodium Potassium Chloride Carbon Dioxide BUN Creatinine Glucose POC Glucose (mg/dL) 133 H 135 H Plasma Lactic Acid Artis Calcium Phosphorus Magnesium AST ALT Alkaline Phosphatase TSH Free T4 Free T3 pg/mL Urine Appearance Urine Protein Urine Glucose (UA) Urine Ketones Urine Blood Ur Leukocyte Esterase Urine RBC Urine WBC Ur Squamous Epith Cells Amorphous Sediment Urine Bacteria Urine Mucus 06/02/24 06/02/24 06/02/24 20:04 20:47 21:26 WBC Hct MCHC Neutrophils # VBG pH 7.30 L VBG pCO2 23 L VBG HCO3 11 L Sodium 132 L Potassium Chloride 109 H Carbon Dioxide 8 L* BUN Creatinine 0.37 L Glucose 156 H POC Glucose (mg/dL) 180 H Plasma Lactic Acid Artis Calcium Phosphorus Magnesium AST ALT Alkaline Phosphatase TSH Free T4 Free T3 pg/mL Urine Appearance Urine Protein Urine Glucose (UA) Urine Ketones Urine Blood Ur Leukocyte Esterase Urine RBC Urine WBC Ur Squamous Epith Cells Amorphous Sediment Urine Bacteria Urine Mucus 06/02/24 06/02/24 06/02/24 21:44 23:22 23:45 WBC Hct MCHC Neutrophils # VBG pH VBG pCO2 VBG HCO3 Sodium 133 L Potassium Chloride 109 H Carbon Dioxide 10 L BUN 6 L Creatinine 0.31 L Glucose 206 H POC Glucose (mg/dL) 202 H 203 H Plasma Lactic Acid Artis Calcium Phosphorus Magnesium AST ALT Alkaline Phosphatase TSH Free T4 Free T3 pg/mL Urine Appearance Urine Protein Urine Glucose (UA) Urine Ketones Urine Blood Ur Leukocyte Esterase Urine RBC Urine WBC Ur Squamous Epith Cells Amorphous Sediment Urine Bacteria Urine Mucus 06/03/24 06/03/24 06/03/24 00:37 01:31 02:29 WBC Hct MCHC Neutrophils # VBG pH VBG pCO2 VBG HCO3 Sodium Potassium Chloride Carbon Dioxide BUN Creatinine Glucose POC Glucose (mg/dL) 177 H 191 H 212 H Plasma Lactic Acid Artis Calcium Phosphorus Magnesium AST ALT Alkaline Phosphatase TSH Free T4 Free T3 pg/mL Urine Appearance Urine Protein Urine Glucose (UA) Urine Ketones Urine Blood Ur Leukocyte Esterase Urine RBC Urine WBC Ur Squamous Epith Cells Amorphous Sediment Urine Bacteria Urine Mucus 06/03/24 06/03/24 06/03/24 03:15 04:09 04:57 WBC Hct MCHC Neutrophils # VBG pH VBG pCO2 VBG HCO3 Sodium 131 L Potassium Chloride 109 H Carbon Dioxide 11 L BUN 4 L Creatinine 0.27 L Glucose 226 H POC Glucose (mg/dL) 211 H 210 H Plasma Lactic Acid Artis Calcium 8.0 L Phosphorus Magnesium AST ALT Alkaline Phosphatase TSH Free T4 Free T3 pg/mL Urine Appearance Urine Protein Urine Glucose (UA) Urine Ketones Urine Blood Ur Leukocyte Esterase Urine RBC Urine WBC Ur Squamous Epith Cells Amorphous Sediment Urine Bacteria Urine Mucus 06/03/24 06/03/24 06/03/24 04:57 05:08 06:07 WBC Hct MCHC Neutrophils # VBG pH VBG pCO2 VBG HCO3 Sodium Potassium Chloride Carbon Dioxide BUN Creatinine Glucose POC Glucose (mg/dL) 206 H 215 H Plasma Lactic Acid Artis Calcium Phosphorus Magnesium 1.5 L AST ALT Alkaline Phosphatase TSH Free T4 Free T3 pg/mL Urine Appearance Urine Protein Urine Glucose (UA) Urine Ketones Urine Blood Ur Leukocyte Esterase Urine RBC Urine WBC Ur Squamous Epith Cells Amorphous Sediment Urine Bacteria Urine Mucus 06/03/24 07:07 WBC Hct MCHC Neutrophils # VBG pH VBG pCO2 VBG HCO3 Sodium Potassium Chloride Carbon Dioxide BUN Creatinine Glucose POC Glucose (mg/dL) 217 H Plasma Lactic Acid Artis Calcium Phosphorus Magnesium AST ALT Alkaline Phosphatase TSH Free T4 Free T3 pg/mL Urine Appearance Urine Protein Urine Glucose (UA) Urine Ketones Urine Blood Ur Leukocyte Esterase Urine RBC Urine WBC Ur Squamous Epith Cells Amorphous Sediment Urine Bacteria Urine Mucus Assessment and Plan Assessment: Diabetic ketoacidosis Thyrotoxicosis Lactic acidosis, secondary to diabetic ketoacidosis Anion gap metabolic acidosis, secondary to diabetic ketoacidosis Hyperkalemia, secondary to diabetic ketoacidosis Transaminitis Ketonuria, secondary to diabetic ketoacidosis Tachycardia, secondary to hyperthyroidism Nicotine dependence Plan: Continue DKA protocol with IV insulin and D50.45% NaCl Consider DKA transition when glucose <200, anion gap is closed, and bicarb is >18 Restart home meds: methimazole and atenolol Replace potassium per protocol Monitor blood sugars Monitor hemodynamics DVT prophylaxis with SCD's Labs, images, and medications were reviewed
[2024-06-03 09:27] LABS: Platelet Count 158 k/uL (150-450)
[2024-06-03 09:49] LABS: African American GFR (CKD) >90 (>60 ml/min/1.73 sqM); Anion Gap 16 mmol/L; Blood Urea Nitrogen 3 mg/dL (7-17); Calcium 8.4 mg/dL (8.4-10.2); Carbon Dioxide 11 mmol/L (22-30); Chloride 107 mmol/L (98-107); Glucose 228 mg/dL (74-99); Non-African American GFR(CKD) >90 (>60 ml/min/1.73 sqM); Phosphorus 2.8 mg/dL (2.5-4.5); Potassium 3.8 mmol/L (3.5-5.1); Sodium 134 mmol/L (137-145)
[2024-06-03 10:14] LABS: Glucose,Whole Blood 330 mg/dL (70-110)
[2024-06-03 11:02] LABS: Glucose,Whole Blood 319 mg/dL (70-110)
[2024-06-03 12:08] LABS: Glucose,Whole Blood 330 mg/dL (70-110)
[2024-06-03 13:11] LABS: Glucose,Whole Blood 330 mg/dL (70-110)
[2024-06-03 14:12] LABS: Glucose,Whole Blood 328 mg/dL (70-110)
[2024-06-03 14:14] LABS: African American GFR (CKD) >90 (>60 ml/min/1.73 sqM); Anion Gap 9 mmol/L; Blood Urea Nitrogen 6 mg/dL (7-17); Calcium 8.1 mg/dL (8.4-10.2); Carbon Dioxide 18 mmol/L (22-30); Chloride 105 mmol/L (98-107); Glucose 349 mg/dL (74-99); Non-African American GFR(CKD) >90 (>60 ml/min/1.73 sqM); Potassium 3.8 mmol/L (3.5-5.1); Sodium 132 mmol/L (137-145)
[2024-06-03 14:38] VITALS: BMI 31.1
[2024-06-03 15:12] LABS: Glucose,Whole Blood 269 mg/dL (70-110)
[2024-06-03 16:05] LABS: Glucose,Whole Blood 221 mg/dL (70-110)
[2024-06-03 16:54] LABS: Glucose,Whole Blood 236 mg/dL (70-110)
[2024-06-03 18:03] LABS: Glucose,Whole Blood 224 mg/dL (70-110)
[2024-06-03] MEDS: INSULIN ASPART (NovoLOG) 100 UNIT/ML VIAL SQ SCH ×3 (18:14→21:27)
[2024-06-03 18:50] LABS: African American GFR (CKD) >90 (>60 ml/min/1.73 sqM); Anion Gap 4 mmol/L; Blood Urea Nitrogen 7 mg/dL (7-17); Calcium 8.1 mg/dL (8.4-10.2); Carbon Dioxide 19 mmol/L (22-30); Chloride 110 mmol/L (98-107); Glucose 264 mg/dL (74-99); Non-African American GFR(CKD) >90 (>60 ml/min/1.73 sqM); Sodium 133 mmol/L (137-145)
[2024-06-03 19:00] LABS: Glucose,Whole Blood 221 mg/dL (70-110)
[2024-06-03 19:10] LABS: Potassium 3.9 mmol/L (3.5-5.1)
[2024-06-03 21:21] LABS: Glucose,Whole Blood 219 mg/dL (70-110)
[2024-06-03] MEDS: HEPARIN SODIUM,PORCINE 5,000 UNIT/ML 1 ML VIAL SQ SCH (21:21)
[2024-06-03] MEDS: INSULIN DETEMIR (LEVEMIR) 100 UNIT/ML SYR SQ SCH (21:27)
[2024-06-04 01:48] LABS: African American GFR (CKD) >90 (>60 ml/min/1.73 sqM); Anion Gap 5 mmol/L; Blood Urea Nitrogen 6 mg/dL (7-17); Calcium 8.3 mg/dL (8.4-10.2); Carbon Dioxide 22 mmol/L (22-30); Chloride 108 mmol/L (98-107); Glucose 147 mg/dL (74-99); Non-African American GFR(CKD) >90 (>60 ml/min/1.73 sqM); Phosphorus 3.2 mg/dL (2.5-4.5); Potassium 3.1 mmol/L (3.5-5.1); Sodium 135 mmol/L (137-145)
[2024-06-04] MEDS ORDERED: Potassium Replacement Protocol 1 EACH MISC MISCELLANE PRN (01:57)
[2024-06-04] MEDS: POTASSIUM CHLORIDE ER 20 MEQ TAB.ER PO SCH ×2 (02:27→06:53)
[2024-06-04 06:02] LABS: HCT 36.5 % (34.0-46.0); HGB 12.1 gm/dL (11.4-16.0); MCHC 33.1 g/dL (31.0-37.0); MCV 87.6 fL (80.0-100.0); Mean Platelet Volume 7.2; Platelet Count 124 k/uL (150-450); RBC 4.17 m/uL (3.80-5.40); RDW 13.7 % (11.5-15.5); WBC 3.5 k/uL (4.0-11.0)
[2024-06-04 06:23] LABS: African American GFR (CKD) >90 (>60 ml/min/1.73 sqM); Anion Gap 3 mmol/L; Blood Urea Nitrogen 7 mg/dL (7-17); Calcium 8.4 mg/dL (8.4-10.2); Carbon Dioxide 23 mmol/L (22-30); Chloride 110 mmol/L (98-107); Glucose 167 mg/dL (74-99); Magnesium 1.5 mg/dL (1.6-2.3); Non-African American GFR(CKD) >90 (>60 ml/min/1.73 sqM); Potassium 3.4 mmol/L (3.5-5.1); Sodium 136 mmol/L (137-145)
[2024-06-04 06:38] LABS: Glucose,Whole Blood 152 mg/dL (70-110)
[2024-06-04] MEDS ORDERED: Magnesium Replacement Protocol 1 EACH MISC MISCELLANE PRN (06:39)
[2024-06-04] MEDS ORDERED: MAGNESIUM SULFATE-D5W PMX 1 GM in DEXTROSE/WATER 1 100ML.BAG IVPB SCH (06:45)
[2024-06-04] MEDS: PANTOPRAZOLE 40 MG TABLET PO SCH (06:53)
[2024-06-04] MEDS: MAGNESIUM SULFATE-D5W PMX 1 GM in DEXTROSE/WATER 1 100ML.BAG IVPB SCH (06:55)
[2024-06-04 09:22] VITALS: BP 122/73; PULSE 103; RESP 19; TEMP 97.6
--- NOTE | 2024-06-04 10:22 | P.PN ---
Subjective Progress Note Date: 06/04/24 Principal diagnosis: DKA, Graves' disease. Patient is a 19-year-old female with past medical history significant for type 1 diabetes and hyperthyroidism who presented to the emergency department with 1 day of nausea, vomiting, and weakness. She has experienced DKA before, most recently in July 2023. She states that she has been compliant with her medications and blood sugar checks. Dr. Bateman manages her diabetes and hyperthyroidism. Initial ED workup: VBG pH 7.03, pCO2 19, and HCO3 5. EKG showed supraventricular tachycardia. Blood pressure was 136/87, pulses were [id number]. Labs showed WBCs 20.1, hemoglobin 15.4, hematocrit 51.9, platelets 386, sodium 133, potassium 5.7, chloride 97, CO2 <5, BUN 11, creatinine 0.63, glucose 601, lactic acid 3.8, AST 41, ALT 46, alkaline phosphatase 153, TSH <0.015, free T4 6.72, free T3 13. Urinalysis positive for acetone, ketones, and glucose. She was subsequently started on DKA protocol with IV insulin. She states that her normal resting heart rate is in the 120s-130s. 06/03/2024. She is currently on insulin at 2.06 mL /h, D50.45% NaCl at 150 mL /h, potassium chloride 10 mEq at 100 mL/h per protocol. She is on room air saturating at 98%. Blood pressure 123/72, pulse 134. She states that she is feeling better today. Progress note dated June 04, 2024. 19-year-old female admitted to the hospital with a diagnosis of diabetic ketoacidosis, thyroid storm. The patient is doing much better today. She is seen today in room 258. She is on room air. No IV fluids. The patient could be transferred to the general medical floor with telemetry. The patient does have chronic tachycardia. Current labs include a white count 3.5, hemoglobin 12.1, macro 36.5, and a platelet count of 124,000. Sodium 136, potassium 3.4, chlorides 110, CO2 23, BUN 7, creatinine 0.25. Glucose is 152. Magnesium 1.5. Calcium is normal. Objective - Vital Signs Vital signs: Vital Signs Temp 97.6 F 06/04/24 08:00 Pulse 103 H 06/04/24 08:00 Resp 19 06/04/24 08:00 BP 122/73 06/04/24 08:00 Pulse Ox 98 06/04/24 08:00 FiO2 Intake & Output 06/03/24 06/04/24 06/04/24 18:59 06:59 18:59 Intake Total 2004.929 Balance 2004.92 Weight 90.1 kg Intake: IV 1950 D5-0.45% NaCl with KCl 1650 20Meq/l 1,000 ml @ 150 mls/hr IV .Q6H40M [facility] Rx# :[id number] Magnesium Sulfate-D5w Pmx 200 1 gm In Dextrose/Water 1 100ml.bag @ 100 mls/hr IVPB Q1H [facility] Rx#: [id number] Potassium Chloride 10 meq 100 In Water For Injection 1 100ml.bag @ 100 mls/hr IVPB Q1H [facility] Rx#: [id number] Intake, IV Titration 55.929 Amount Insulin Regular 100 unit 55.929 In Sodium Chloride 0.9% 100 ml @ 0.1 UNITS/KG/HR 8.246 mls/hr IV .[id number] [facility] Rx#:[id number] Other: # Voids 1 1 # Bowel Movements 1 - Exam No acute distress, oriented 3. HEENT examination is grossly unremarkable. Mucous membranes are moist. No oral lesions. Neck supple. Full range of motion. No adenopathy thyromegaly or neck vein distention. Cardiovascular examination reveals regular rhythm rate. S1-S2 normal. No S3 or S4. No discernible murmur noted. Patient is chronically tachycardic. Lungs reveal clear breath sounds. Breath sounds are equal bilaterally. No adventitious lung sounds including wheezes rhonchi or crackles. Abdomen soft bowel sounds are heard. No masses or tenderness. Extremities are intact. No cyanosis clubbing or edema. Skin is without rash or lesion. Neurologic examination is brief but nonfocal. - Labs CBC & Chem 7: 06/04/24 05:54 06/04/24 05:54 Labs: Abnormal Lab Results - Last 24 Hours (Table) 06/03/24 06/03/24 06/03/24 Range/Units 11:00 12:07 13:09 WBC (4.0-11.0) k/uL Plt Count (150-450) k/uL Sodium (137-145) mmol/L Potassium (3.5-5.1) mmol/L Chloride (98-107) mmol/L Carbon Dioxide (22-30) mmol/L BUN (7-17) mg/dL Creatinine (0.52-1.04) mg/dL Glucose (74-99) mg/dL POC Glucose (mg/dL) 319 H 330 H 330 H (70-110) mg/dL Calcium (8.4-10.2) mg/dL Magnesium (1.6-2.3) mg/dL 06/03/24 06/03/24 06/03/24 Range/Units 13:29 14:11 15:11 WBC (4.0-11.0) k/uL Plt Count (150-450) k/uL Sodium 132 L (137-145) mmol/L Potassium (3.5-5.1) mmol/L Chloride (98-107) mmol/L Carbon Dioxide 18 L (22-30) mmol/L BUN 6 L (7-17) mg/dL Creatinine 0.49 L (0.52-1.04) mg/dL Glucose 349 H (74-99) mg/dL POC Glucose (mg/dL) 328 H 269 H (70-110) mg/dL Calcium 8.1 L (8.4-10.2) mg/dL Magnesium (1.6-2.3) mg/dL 06/03/24 06/03/24 06/03/24 Range/Units 16:04 16:53 17:22 WBC (4.0-11.0) k/uL Plt Count (150-450) k/uL Sodium 133 L (137-145) mmol/L Potassium (3.5-5.1) mmol/L Chloride 110 H (98-107) mmol/L Carbon Dioxide 19 L (22-30) mmol/L BUN (7-17) mg/dL Creatinine 0.34 L (0.52-1.04) mg/dL Glucose 264 H (74-99) mg/dL POC Glucose (mg/dL) 221 H 236 H (70-110) mg/dL Calcium 8.1 L (8.4-10.2) mg/dL Magnesium (1.6-2.3) mg/dL 06/03/24 06/03/24 06/03/24 Range/Units 18:02 18:58 21:20 WBC (4.0-11.0) k/uL Plt Count (150-450) k/uL Sodium (137-145) mmol/L Potassium (3.5-5.1) mmol/L Chloride (98-107) mmol/L Carbon Dioxide (22-30) mmol/L BUN (7-17) mg/dL Creatinine (0.52-1.04) mg/dL Glucose (74-99) mg/dL POC Glucose (mg/dL) 224 H 221 H 219 H (70-110) mg/dL Calcium (8.4-10.2) mg/dL Magnesium (1.6-2.3) mg/dL 06/04/24 06/04/24 06/04/24 Range/Units 01:12 05:54 05:54 WBC 3.5 L (4.0-11.0) k/uL Plt Count 124 L (150-450) k/uL Sodium 135 L 136 L (137-145) mmol/L Potassium 3.1 L 3.4 L (3.5-5.1) mmol/L Chloride 108 H 110 H (98-107) mmol/L Carbon Dioxide (22-30) mmol/L BUN 6 L (7-17) mg/dL Creatinine 0.25 L 0.25 L (0.52-1.04) mg/dL Glucose 147 H 167 H (74-99) mg/dL POC Glucose (mg/dL) (70-110) mg/dL Calcium 8.3 L (8.4-10.2) mg/dL Magnesium 1.5 L (1.6-2.3) mg/dL 06/04/24 Range/Units 06:37 WBC (4.0-11.0) k/uL Plt Count (150-450) k/uL Sodium (137-145) mmol/L Potassium (3.5-5.1) mmol/L Chloride (98-107) mmol/L Carbon Dioxide (22-30) mmol/L BUN (7-17) mg/dL Creatinine (0.52-1.04) mg/dL Glucose (74-99) mg/dL POC Glucose (mg/dL) 152 H (70-110) mg/dL Calcium (8.4-10.2) mg/dL Magnesium (1.6-2.3) mg/dL Assessment and Plan Assessment: Diabetic ketoacidosis, resolved. Thyrotoxicosis/thyroid storm, improved. Lactic acidosis, resolved. Acute anion gap metabolic acidosis, resolved. Hyperkalemia. Transaminitis. Tachycardia, chronic, secondary to thyroid disease. Nicotine dependence. Plan: Plan dated June 04, 2024. The patient is seen today in room 258. She is much improved. She is on room air. She is not receiving any IV fluids. The patient remains chronically tachycardic. Heart rate about 110s to 120 bpm. The patient can be transferred to the general medical floor with telemetry. Labs, x-rays, and all medications are reviewed. Prognosis is guarded. Time with Patient: Less than 30
[2024-06-04] MEDS: LEVONORGESTREL PO SCH (10:23)
[2024-06-04] MEDS: ETHIN ESTRADIOL PO SCH (10:23)
[2024-06-04 11:32] LABS: Glucose,Whole Blood 234 mg/dL (70-110)
--- NOTE | 2024-06-05 03:59 | HP ---
HISTORY AND PHYSICAL CHIEF COMPLAINT: Diabetic ketoacidosis and hypothyroidism. HISTORY OF PRESENT ILLNESS: This is another admission for this 19-year-old type 1 insulin-dependent diabetic. She does not know why, but her blood sugar chanell to over 600 and she came to the emergency room. She also have Graves disease and is on methimazole with poor control. In the emergency room, her white count was 20,100 and her blood sugar was 602. T4 was elevated at 6.72 within the upper limit of normal 2. PH was 7.07. Bicarb was 5. Potassium was 5.7. Liver function studies are also slightly elevated. REVIEW OF SYSTEMS: She had no other complaints or problems. She has had no syncope. PAST MEDICAL HISTORY: Otherwise unremarkable. FAMILY HISTORY: Otherwise unremarkable. PERSONAL AND SOCIAL HISTORY: Otherwise unremarkable. MEDICATIONS: 1. Insulin. 2. Atenolol. 3. Zestril. 4. Methimazole. ALLERGIES: She is not allergic to any medication. PHYSICAL EXAMINATION: VITAL SIGNS: Blood pressure 136/87 with pulse of 172. HEAD, EARS, EYES, NOSE, MOUTH AND THROAT: Normal. CHEST: Clear. CARDIAC: Stable with tachycardia. ABDOMEN: Soft, nontender. EXTREMITIES: Normal. NEUROLOGICAL: She is intact. DIAGNOSES: She is admitted to the hospital with diagnoses: 1. Diabetic ketoacidosis. 2. Graves disease. 3. Hyperkalemia. 4. Metabolic acidosis. PLAN: 1. Bed rest. 2. IV fluids. 3. DKA protocol. 4. Increase her methimazole. MMODL / IJN: [id number] /
--- NOTE | 2024-06-05 10:38 | PN ---
PROGRESS NOTE DATE OF SERVICE: 06/03/2024 CHIEF COMPLAINT: DKA and hyperthyroidism. HISTORY OF PRESENT ILLNESS: This lady is doing fairly well. Her pulse has come down to around 110. Blood sugars are improving. PHYSICAL EXAMINATION: CHEST: Clear. CARDIAC: Unchanged except for the tachycardia. ABDOMEN: Soft, nontender. IMPRESSION: 1. Diabetic ketoacidosis. 2. Type 1 insulin-dependent diabetes mellitus. 3. Graves disease. PLAN: Continue management of her blood sugars and she will probably be able to go home tomorrow. Methimazole has been increased. MMODL / IJN: [id number] /
--- NOTE | 2024-06-05 11:22 | DS ---
DISCHARGE SUMMARY CHIEF COMPLAINT: DKA. HISTORY OF PRESENT ILLNESS AND PHYSICAL EXAM: Details of this lady's history and physical can be found in the initial workup. LABORATORY STUDIES: While she was in the hospital, she had laboratory studies, details of which could be found in the laboratory section of her chart. COURSE IN HOSPITAL: After admission, she was placed on bedrest, started intravenous fluids and a DKA protocol. Methimazole was increased slightly. Sugars were good. She was doing well and felt that she could be discharged on the . FINAL DIAGNOSES: 1. Diabetic ketoacidosis. 2. Dehydration. 3. Leukocytosis. 4. Hyperkalemia. 5. Graves disease. OPERATIONS: None. CONSULTATION: Intensive Medicine and she is improved. MMODL / IJN: [id number] /
== END 2024-06-04 19:43 | disposition home or self-care (01) | DRG 637 ==
LOC: EC 13:18 → 2SICU 19:28
PROVIDERS: ADMIT Family Medicine; ATTEND Family Medicine
DX: E10.10 Type 1 diabetes mellitus with ketoacidosis without coma (principal); E05.01 Thyrotoxicosis with diffuse goiter with thyrotoxic crisis or storm; I47.19 Other supraventricular tachycardia; Z79.4 Long term (current) use of insulin; F17.290 Nicotine dependence, other tobacco product, uncomplicated; E86.0 Dehydration; E87.5 Hyperkalemia; D72.829 Elevated white blood cell count, unspecified; R74.01 Elevation of levels of liver transaminase levels; Z79.899 Other long term (current) drug therapy
CPT/HCPCS: 36415; 80048; 80051; 80053; 81001; 81025; 82009; 82565; 82803; 82947; 83605; 83735; 84100; 84439; 84443; 84481; 84520; 85025; 85027; 93005; 96361; 96374; 96375; 96376; 99291

== ENCOUNTER 2024-11-04 15:22 | Inpatient (IN) | payer OTHER ==
--- NOTE | 2024-11-04 16:49 | ED ---
General Adult HPI - General Chief complaint: Dental/Oral Stated complaint: facial swelling Time Seen by Provider: 11/04/24 15:59 Source: patient, RN notes reviewed Limitations: no limitations - History of Present Illness Initial comments: Patient is a 19-year-old female present to the emergency department with concerns for swelling. Patient has had toothache for the past couple of days and has noticed swelling to her upper lip recently. Patient has moderate discomfort, mild now following Motrin use. Patient has foul taste in her mouth. Patient does have history of chronic tachycardia with heart rate normally 120- 130. - Related Data Home Medications Medication Instructions Recorded Confirmed Insulin Glargine,Hum.rec.anlog 30 units SQ HS 12/23/23 06/02/24 [Lantus Solostar Pen] Insulin Lispro [humaLOG Kwikpen] 1 - 7 unit SQ ACHS 12/23/23 06/02/24 Insulin Lispro [humaLOG Kwikpen] 10 unit SQ TID-W/MEALS 12/23/23 06/02/24 Levonorgestrel/Ethin.estradiol 1 tab PO DAILY 12/23/23 06/02/24 [Lutera-28 Tablet] lisinopriL [Zestril] 2.5 mg PO DAILY 06/02/24 06/02/24 Previous Rx's Medication Instructions Recorded atenoloL [Tenormin] 100 mg PO DAILY #30 tab 06/04/24 methIMAzole [Tapazole] 20 mg PO TID #90 tab 06/04/24 Allergies Allergy/AdvReac Type Severity Reaction Status Date / Time No Known Allergies Allergy Verified 11/04/24 15:32 Review of Systems ROS Statement: Those systems with pertinent positive or pertinent negative responses have been documented in the HPI. ROS Other: All systems not noted in ROS Statement are negative. Constitutional: Denies: fever Eyes: Denies: eye pain ENT: Reports: as per HPI. Denies: ear pain Respiratory: Denies: cough, dyspnea Past Medical History Past Medical History: Asthma, Diabetes Mellitus, Thyroid Disorder Additional Past Medical History / Comment(s): hyperthyroidism, Type 1 DM, tachycardia, grave's disease History of Any Multi-Drug Resistant Organisms: None Reported Past Surgical History: No Surgical Hx Reported Past Anesthesia/Blood Transfusion Reactions: No Reported Reaction Past Psychological History: ADD/ADHD, Anxiety, Depression Smoking Status: Vaper Past Alcohol Use History: Occasional, Rare Past Drug Use History: None Reported - Past Family History Mother Additional Family Medical History / Comment(s): none Father Family Medical History: COPD Brother(s) Family Medical History: Diabetes Mellitus Additional Family Medical History / Comment(s): Type 1 DM General Exam Limitations: no limitations General appearance: alert Head exam: Present: atraumatic Eye exam: Present: normal appearance ENT exam: Present: other (Poor dentition. Right superior lateral incisor with supra areolar abscess, open and draining. There is mild to moderate swelling of the maxillary region) Respiratory exam: Present: normal lung sounds bilaterally. Absent: respiratory distress Cardiovascular Exam: Present: tachycardia GI/Abdominal exam: Present: soft. Absent: tenderness Extremities exam: Present: normal inspection Neurological exam: Present: alert Psychiatric exam: Present: normal affect, normal mood Skin exam: Present: normal color Course Vital Signs 11/04/24 11/04/24 11/04/24 15:28 16:04 17:23 Temperature 98.2 F Pulse Rate 163 H 108 H 148 H Respiratory 20 16 16 Rate Blood Pressure 148/96 138/110 123/101 O2 Sat by Pulse 94 L 98 97 Oximetry Medical Decision Making - Medical Decision Making Was pt. sent in by a medical professional or institution (, PA, LINE SERVICE ATTENDANT, urgent care, hospital, or retirement...) When possible be specific @ -No Did you speak to anyone other than the patient for history (EMS, parent, family, police, friend...)? What history was obtained from this source @ -No Did you review nursing and triage notes (agree or disagree)? Why? @ -I reviewed and agree with nursing and triage notes Were old charts reviewed (outside hosp., previous admission, EMS record, old E KG, old radiological studies, urgent care reports/EKG's, retirement records)? Report findings @ -No old charts were reviewed Differential Diagnosis (chest pain, altered mental status, abdominal pain women, abdominal pain men, vaginal bleeding, weakness, fever, dyspnea, syncope, headache, dizziness, GI bleed, back pain, seizure, CVA, palpatations, mental health, musculoskeletal)? @ -Differential Fever: Pneumonia, viral URI, endocarditis, myocarditis, pericarditis, otitis, sinusitis, peritonsillar Abscess, retropharyngeal Abscess, epiglottitis, peritonitis, appendicitis, Princess cystitis, diverticulitis, hepatitis, colitis, UTI, PID, TOA, pyelonephritis, prostatitis, epididymitis, meningitis, encephalitis, pulmonary embolism, CVA, thyroid storm, pancreatitis, adrenal crisis, cavernous sinus thrombosis, this is not meant to be an all-inclusive list. EKG interpreted by me (3pts min.). @ -As above X-rays interpreted by me (1pt min.). @ -None done CT interpreted by me (1pt min.). @ -None done U/S interpreted by me (1pt. min.). @ -None done What testing was considered but not performed or refused? (CT, X-rays, U/S, labs)? Why? @ -None What meds were considered but not given or refused? Why? @ -None Did you discuss the management of the patient with other professionals (allegra li i.e. , PA, LINE SERVICE ATTENDANT, lab, RT, psych nurse, director social, case picker, teacher, grants officer, assistant case manager)? Give summary @ -Case discussed with Dr. Garner who will admit his patient Was smoking cessation discussed for >3mins.? @ -No Was critical care preformed (if so, how long)? @ -31 minutes critical care time Were there social determinants of health that impacted care today? How? (Homele ssness, low income, unemployed, alcoholism, drug addiction, transportation, low edu. Level, literacy, decrease access to med. care, [facility], rehab)? @ -No Was there de-escalation of care discussed even if they declined (Discuss DNR or withdrawal of care, Hospice)? DNR status @ -No What co-morbidities impacted this encounter? (DM, HTN, Smoking, COPD, CAD, Cancer, CVA, ARF, Chemo, Hep., AIDS, mental health diagnosis, sleep apnea, morbid obesity)? @ -Diabetic Was patient admitted / discharged? Hospital course, mention meds given and route, prescriptions, significant lab abnormalities, going to OR and other pertinent info. @ -Patient presents with dental abscess. Patient does have swelling. Patient is tachycardic. Diffuse poor dentition. Patient will be admitted with IV antibiotics and IV fluids. Additional testing ordered including thyroid and acetone. There is concern for sepsis diagnosed at 1800. Blood culture and lactic acid and IV antibiotics have all been ordered. Undiagnosed new problem with uncertain prognosis? @ -No Drug Therapy requiring intensive monitoring for toxicity (Heparin, Nitro, Insulin, Cardizem)? @ -No Were any procedures done? @ -No Diagnosis/symptom? @ -Dental abscess, sepsis Acute, or Chronic, or Acute on Chronic? @ -Acute, acute Uncomplicated (without systemic symptoms) or Complicated (systemic symptoms)? @ -Default Side effects of treatment? @ -No Exacerbation, Progression, or Severe Exacerbation? @ -No Poses a threat to life or bodily function? How? (Chest pain, USA, NE, pneumonia, PE, COPD, DKA, ARF, appy, cholecystitis, CVA, Diverticulitis, Homicidal, Suicidal, threat to staff... and all critical care pts) @ -No - Lab Data Result diagrams: 11/04/24 17:11 11/04/24 17:11 Lab Results 11/04/24 11/04/24 11/04/24 Range/Units 17:11 17:11 17:11 WBC 10.45 H (4.50-10.00) 10*3/uL RBC 4.80 (4.10-5.20) 10*6/uL Hgb 14.3 (12.0-15.0) g/dL Hct 42.1 (37.2-46.3) % MCV 87.7 (80.0-97.0) fL MCH 29.8 (27.0-32.0) pg MCHC 34.0 (32.0-37.0) g/dL Plt Count 256 (140-440) 10*3/uL MPV 10.0 (9.5-12.2) fL Immature Gran % (Auto) 0.4 % Neutrophils % 73.6 % Lymphocytes % 18.4 % Monocytes % 7.0 % Eosinophils % 0.4 % Basophils % 0.2 % Immature Gran # 0.04 (0.00-0.04) 10*3/uL Neutrophils # 7.70 (1.80-7.70) 10*3/uL Lymphocytes # 1.92 (0.90-5.00) 10*3/uL Monocytes # 0.73 (0.20-1.00) 10*3/uL Eosinophils # 0.04 (0.04-0.35) 10*3/uL Basophils # 0.02 (0.00-0.10) 10*3/uL PT 10.6 (10.0-12.5) sec INR 0.9 (<1.2) APTT 22.9 (22.0-30.0) sec Sodium 134 L (137-145) mmol/L Potassium 3.9 (3.5-5.1) mmol/L Chloride 101 (98-107) mmol/L Carbon Dioxide 9 L* (22-30) mmol/L Anion Gap 24 mmol/L BUN 8 (7-17) mg/dL Creatinine 0.32 L (0.52-1.04) mg/dL Est GFR (CKD-EPI)AfAm >90 (>60 ml/min/1.73 sqM) Est GFR (CKD-EPI)NonAf >90 (>60 ml/min/1.73 sqM) Glucose 366 H (74-99) mg/dL Plasma Lactic Acid Artis (0.7-2.0) mmol/L Calcium 9.2 (8.4-10.2) mg/dL Total Bilirubin 1.0 (0.2-1.3) mg/dL AST 19 (14-36) U/L ALT 28 (4-34) U/L Alkaline Phosphatase 164 H (38-126) U/L Total Protein 7.1 (6.3-8.2) g/dL Albumin 3.9 (3.5-5.0) g/dL 04//25 Range/Units 17:11 WBC (4.50-10.00) 10*3/uL RBC (4.10-5.20) 10*6/uL Hgb (12.0-15.0) g/dL Hct (37.2-46.3) % MCV (80.0-97.0) fL MCH (27.0-32.0) pg MCHC (32.0-37.0) g/dL Plt Count (140-440) 10*3/uL MPV (9.5-12.2) fL Immature Gran % (Auto) % Neutrophils % % Lymphocytes % % Monocytes % % Eosinophils % % Basophils % % Immature Gran # (0.00-0.04) 10*3/uL Neutrophils # (1.80-7.70) 10*3/uL Lymphocytes # (0.90-5.00) 10*3/uL Monocytes # (0.20-1.00) 10*3/uL Eosinophils # (0.04-0.35) 10*3/uL Basophils # (0.00-0.10) 10*3/uL PT (10.0-12.5) sec INR (<1.2) APTT (22.0-30.0) sec Sodium (137-145) mmol/L Potassium (3.5-5.1) mmol/L Chloride (98-107) mmol/L Carbon Dioxide (22-30) mmol/L Anion Gap mmol/L BUN (7-17) mg/dL Creatinine (0.52-1.04) mg/dL Est GFR (CKD-EPI)AfAm (>60 ml/min/1.73 sqM) Est GFR (CKD-EPI)NonAf (>60 ml/min/1.73 sqM) Glucose (74-99) mg/dL Plasma Lactic Acid Artis 1.3 (0.7-2.0) mmol/L Calcium (8.4-10.2) mg/dL Total Bilirubin (0.2-1.3) mg/dL AST (14-36) U/L ALT (4-34) U/L Alkaline Phosphatase (38-126) U/L Total Protein (6.3-8.2) g/dL Albumin (3.5-5.0) g/dL Disposition Clinical Impression: Dental abscess, Sepsis Disposition: ADMITTED IP TO THIS HOSP Condition: Serious Is patient prescribed a controlled substance at d/c from ED?: No Referrals: Stanley Garner MD [Primary Care Provider] - 1-2 days Time of Disposition: 18:07
[2024-11-04] MEDS: LACTATED RINGERS 1,000 ML IV SCH (17:21)
[2024-11-04] MEDS: AMPICILLIN-SULBACTAM 3 GM in SODIUM CHLORIDE 0.9% 100 ML IVPB SCH (17:21)
[2024-11-04 17:22] LABS: Basophils # (A) 0.02 10*3/uL (0.00-0.10); Basophils % (A) 0.2 %; Eosinophils # (A) 0.04 10*3/uL (0.04-0.35); Eosinophils % (A) 0.4 %; HCT 42.1 % (37.2-46.3); HGB 14.3 g/dL (12.0-15.0); Lymphocytes # (A) 1.92 10*3/uL (0.90-5.00); Lymphocytes % (A) 18.4 %; MCH 29.8 pg (27.0-32.0); MCV 87.7 fL (80.0-97.0); Monocytes # (A) 0.73 10*3/uL (0.20-1.00); Neutrophils % (A) 73.6 %; Platelet Count 256 10*3/uL (140-440); WBC 10.45 10*3/uL (4.50-10.00)
[2024-11-04 17:31] LABS: INR 0.9 (<1.2); Partial Thromboplastin Time 22.9 sec (22.0-30.0); Prothrombin Time 10.6 sec (10.0-12.5)
[2024-11-04 17:33] LABS: ALT 28 U/L (4-34); AST 19 U/L (14-36); African American GFR (CKD) >90 (>60 ml/min/1.73 sqM); Albumin 3.9 g/dL (3.5-5.0); Alkaline Phosphatase 164 U/L (38-126); Anion Gap 24 mmol/L; Blood Urea Nitrogen 8 mg/dL (7-17); Calcium 9.2 mg/dL (8.4-10.2); Chloride 101 mmol/L (98-107); Glucose 366 mg/dL (74-99); Non-African American GFR(CKD) >90 (>60 ml/min/1.73 sqM); Potassium 3.9 mmol/L (3.5-5.1); Sodium 134 mmol/L (137-145); Total Protein 7.1 g/dL (6.3-8.2)
[2024-11-04 17:36] LABS: Carbon Dioxide 9 mmol/L (22-30)
[2024-11-04 18:05] LABS: Glucose,Whole Blood 247 mg/dL (70-110)
[2024-11-04 18:35] LABS: T4, Free (Free Thyroxine) 5.24 ng/dL (0.78-2.19)
[2024-11-04] MEDS ORDERED: FAMOTIDINE 20 MG TAB PO PRN (19:58)
[2024-11-04] MEDS ORDERED: busPIRone HCl 10 MG TAB PO PRN (19:58)
[2024-11-04] MEDS ORDERED: ONDANSETRON ODT 8 MG TAB.RAPDIS PO PRN (19:58)
[2024-11-04] MEDS: SODIUM CHLORIDE 0.9% 1,000 ML IV STA (20:19)
[2024-11-04 21:13] LABS: Glucose,Whole Blood 198 mg/dL (70-110)
[2024-11-04] MEDS: methIMAzole 5 MG TAB PO SCH (21:36)
[2024-11-04] MEDS: INSULIN GLARGINE (LANTUS) 100 UNIT/ML SYR SQ SCH (21:38)
[2024-11-04 21:49] LABS: African American GFR (CKD) >90 (>60 ml/min/1.73 sqM); Anion Gap 8 mmol/L; Blood Urea Nitrogen 7 mg/dL (7-17); Calcium 7.7 mg/dL (8.4-10.2); Carbon Dioxide 23 mmol/L (22-30); Chloride 102 mmol/L (98-107); Glucose 229 mg/dL (74-99); Non-African American GFR(CKD) >90 (>60 ml/min/1.73 sqM); Potassium 3.9 mmol/L (3.5-5.1); Sodium 133 mmol/L (137-145)
[2024-11-04] MEDS ORDERED: NALOXONE 0.4 MG/ML 1 ML VIAL IV PRN (22:12)
[2024-11-04] MEDS: atenoloL 50 MG TAB PO STA (23:10)
[2024-11-05 07:39] LABS: Glucose,Whole Blood 155 mg/dL (70-110)
[2024-11-05] MEDS: INSULIN LISPRO (HumaLOG) 100 UNIT/ML 10 mL VL SQ SCH (07:39)
[2024-11-05] MEDS: atenoloL 50 MG TAB PO SCH (08:05)
[2024-11-05 12:21] LABS: Glucose,Whole Blood 204 mg/dL (70-110)
[2024-11-05 18:23] LABS: Glucose,Whole Blood 287 mg/dL (70-110)
[2024-11-05 20:08] LABS: Glucose,Whole Blood 268 mg/dL (70-110)
[2024-11-05] MEDS: INSULIN GLARGINE (LANTUS) 100 UNIT/ML SYR SQ SCH (20:45)
--- NOTE | 2024-11-06 05:26 | HP ---
HISTORY AND PHYSICAL CHIEF COMPLAINT: Abscess of the upper lip. HISTORY OF PRESENT ILLNESS: This lady presented to the emergency room with an infected right maxillary incisor with periapical abscess and swelling in the lip. She had a fever, and she had a pulse of 143. Blood sugars were elevated. She is an insulin-dependent diabetic. White count was 10,450. Blood sugars were over 200. She does have hyperthyroidism and is on Tapazole. REVIEW OF SYSTEMS: Otherwise unremarkable. Past medical history, family history, and personal and social histories are otherwise normal. PHYSICAL EXAMINATION: VITAL SIGNS: Blood pressure 148/96 with a pulse of 143. HEAD, EARS, EYES, NOSE, MOUTH, AND THROAT: Normal. The only abnormality was the swelling in the upper lip, more to the right. CHEST: Clear. CARDIAC: Normal. ABDOMEN: Soft and nontender. EXTREMITIES: Normal. IMPRESSION: 1. Periapical abscess with cellulitis of the face. 2. Hypertension. 3. Uncontrolled diabetes. 4. History of hyperthyroidism. PLAN: 1. Bed rest. 2. IV fluids. 3. IV antibiotics. 4. Control hypertension. MMODL / IJN: [id number] /
--- NOTE | 2024-11-06 05:26 | PN ---
PROGRESS NOTE DATE OF SERVICE: 11/05/2024 CHIEF COMPLAINT: Periapical abscess and cellulitis of the lip. HISTORY OF PRESENT ILLNESS: This lady is feeling a little bit better. Swelling and discomfort have diminished somewhat. PHYSICAL EXAM: CHEST: Clear. CARDIAC: Normal. The lip is maybe a little less edematous. IMPRESSION: 1. Periapical abscess with cellulitis of the upper lip. 2. Hypertension. 3. Insulin-controlled diabetes. 4. Hyperthyroidism. PLAN: Continue with IV antibiotics and she will be seen by Oral Surgery. MMODL / IJN: [id number] /
[2024-11-06 07:49] LABS: Glucose,Whole Blood 165 mg/dL (70-110)
[2024-11-06 13:02] LABS: Glucose,Whole Blood 144 mg/dL (70-110)
[2024-11-06 16:58] LABS: Glucose,Whole Blood 273 mg/dL (70-110)
[2024-11-06 20:21] LABS: Glucose,Whole Blood 322 mg/dL (70-110)
[2024-11-07 01:29] VITALS: PULSE 108
[2024-11-07 06:19] LABS: Glucose,Whole Blood 215 mg/dL (70-110)
[2024-11-07 08:00] VITALS: BP 127/88; RESP 17; TEMP 97.6
[2024-11-07] MEDS: AMOXIC-POT CLAV 875-125MG 1 EACH TAB PO SCH (11:28)
--- NOTE | 2024-11-07 14:16 | PN ---
PROGRESS NOTE CHIEF COMPLAINT: Periapical abscess in the right maxillary incisor with cellulitis. HISTORY OF PRESENT ILLNESS: This lady is doing much better. Swelling is going down. She is to be seen today by Surgery and we will follow their recommendations. She could either undergo the extraction in the hospital or she may be elected to better go home on antibiotics to have the procedure at a later date. MMODL / IJN: [id number] /
--- NOTE | 2024-11-08 00:43 | DS ---
DISCHARGE SUMMARY CHIEF COMPLAINT: Periapical abscess and cellulitis of the upper lip. HISTORY OF PRESENT ILLNESS AND PHYSICAL EXAMINATION: Details of this lady's history and physical can be found in the initial workup. LABORATORY STUDIES: While she was in the hospital, she had laboratory studies, details of which can be found in the laboratory section of her chart. COURSE IN THE HOSPITAL: She was placed on bedrest with intravenous fluids and antibiotics. The cellulitis on the lips slowly improved and the dental pain seemed to disappear. She was doing well and she has a dental appointment in 2 days and it was felt that she could be discharged. She will go home on Augmentin 875 twice a day. She will go home on her usual medications as well for her diabetes and thyroid disease. FINAL DIAGNOSES: 1. Periapical abscess of a right incisor. 2. Cellulitis of the lip. 3. Diabetes mellitus. 4. Hypothyroidism. OPERATIONS: None. She is improved. MMODL / IJN: [id number] /
== END 2024-11-07 11:52 | disposition home or self-care (01) | DRG 720 ==
LOC: EC 15:22 → 6NMEDSUR 22:12 → OBSVTOIN 22:13 → 6NMEDSUR 11-05 06:43
PROVIDERS: ADMIT Family Medicine; ATTEND Family Medicine
DX: A41.9 Sepsis, unspecified organism (principal); E03.9 Hypothyroidism, unspecified; E10.65 Type 1 diabetes mellitus with hyperglycemia; E05.90 Thyrotoxicosis, unspecified without thyrotoxic crisis or storm; I10 Essential (primary) hypertension; K04.7 Periapical abscess without sinus; L03.211 Cellulitis of face; K13.0 Diseases of lips; Z79.4 Long term (current) use of insulin; Z83.3 Family history of diabetes mellitus; Z79.899 Other long term (current) drug therapy
CPT/HCPCS: 36415; 80048; 80053; 82009; 83605; 84439; 84443; 84481; 85025; 85610; 85730; 87040; 96361; 96365; 96366; 99285